=== PATIENT | male | born 1980 ===

== ENCOUNTER 2018-02-28 19:17 | Inpatient (IN) | payer MEDICAID, OTHER ==
[2018-02-28] MEDS ORDERED: Sodium Chloride 0.9% 1,000 ML IV ONE ×2 (19:39→20:56)
--- NOTE | 2018-02-28 19:43 | C.PDOC ---
History Of Present Illness 37 year old male presents to the ED c/o fever and occasional productive cough for the past 3-4 days. Patient states he is not feeling well. Patient denies nausea, vomit, rash, CP, SOB, weakness, numbness, recent travel, sick contacts. PMD: Dr. Banerjee Chief Complaint (Nursing): Medical Clearance History Per: Patient History/Exam Limitations: no limitations Onset/Duration Of Symptoms: Days (3-4) Current Symptoms Are (Timing): Still Present Reports Recently: Treated By A Physician (Dr. Banerjee) Recent travel outside of the [place]: No Additional History Per: Patient Past Medical History Reviewed: Historical Data, Nursing Documentation, Vital Signs Vital Signs: Last Vital Signs Temp 98.7 F 02/28/18 19:26 Pulse 89 02/28/18 19:26 Resp 18 02/28/18 19:26 BP 126/75 02/28/18 19:26 Pulse Ox 99 02/28/18 20:38 - Medical History PMH: No Chronic Diseases Surgical History: No Surg Hx Family History: States: Unknown Family Hx - Social History Hx Alcohol Use: Yes Hx Substance Use: No - Immunization History Hx Tetanus Toxoid Vaccination: No Hx Influenza Vaccination: No Hx Pneumococcal Vaccination: No Review Of Systems Constitutional: Positive for: Fever. Negative for: Chills Cardiovascular: Negative for: Chest Pain, Palpitations Respiratory: Positive for: Cough. Negative for: Shortness of Breath, Sputum Gastrointestinal: Negative for: Nausea, Vomiting Skin: Negative for: Rash Neurological: Negative for: Weakness, Numbness, Headache Physical Exam - Physical Exam Appears: Non-toxic, No Acute Distress Skin: Normal Color, Warm, Dry Head: Atraumatic, Normacephalic Eye(s): bilateral: Normal Inspection Ear(s): Bilateral: Normal Nose: No Discharge Oral Mucosa: Moist Throat: Normal, No Erythema, No Exudate Neck: Normal ROM, Supple Chest: Symmetrical Cardiovascular: Rhythm Regular, No Murmur Respiratory: No Decreased Breath Sounds, No Accessory Muscle Use, Rales (left lung field), No Rhonchi, No Wheezing, No Plerual Rub Gastrointestinal/Abdominal: Soft, No Tenderness, No Guarding, No Rebound Extremity: Normal ROM, No Tenderness, No Swelling Neurological/Psych: Oriented x3, Normal Speech Gait: Steady ED Course And Treatment - Laboratory Results Result Diagrams: 02/28/18 19:55 02/28/18 19:55 ECG: Interpreted By Me, Viewed By Me ECG Rhythm: Sinus Rhythm ECG Interpretation: Normal, No Acute Changes Interpretation Of ECG: NSR, normal tracings. Rate From EC O2 Sat by Pulse Oximetry: 99 (ON RA) Pulse Ox Interpretation: Normal Medical Decision Making Medical Decision Making: Plan: * EKG * Labs * CXR * IV fluids * Blood culture * Influenza A B test Disposition Discussed With Dr.: Matthew Schreiber Doctor Will See Patient In The: Hospital Counseled Patient/Family Regarding: Diagnosis - Disposition Referrals: Roosevelt Banerjee MD [Primary Care Provider] - Disposition: HOSPITALIZED Disposition Time: 22:13 Condition: STABLE Forms: [facility] (Thai) - POA Present On Arrival: None - Clinical Impression Clinical Impression: Lobar pneumonia - Scribe Statement The provider has reviewed the documentation as recorded by the Scribe Chacorta Grey All medical record entries made by the Scribe were at my direction and personally dictated by me. I have reviewed the chart and agree that the record accurately reflects my personal performance of the history, physical exam, medical decision making, and the department course for this patient. I have also personally directed, reviewed, and agree with the discharge instructions and disposition.
[2018-02-28 20:02] LABS: BASO % 0.4 % (0.0-2.0); EOS % 0.2 % (0.0-4.0); HEMOGLOBIN 12.4 g/dL (12.0-18.0); LYMPH # 0.8 K/uL (1.0-4.3); LYMPH % 12.7 % (20.0-40.0); MEAN CELL VOLUME 95.8 fL (80.0-94.0); MEAN CORPUSCULAR HEMOGLOBIN 33.7 pg (27.0-31.0); MEAN CORPUSCULAR HGB CONC 35.2 g/dL (33.0-37.0); MEAN PLATELET VOLUME 7.6 fL (7.2-11.7); MONO # 0.6 K/uL (0.0-0.8); MONO % 9.7 % (0.0-10.0); NEUT # 4.8 K/uL (1.8-7.0); RBC 3.66 Mil/uL (4.40-5.90); WHITE BLOOD COUNT 6.3 K/uL (4.8-10.8)
[2018-02-28 20:17] LABS: ALB/GLOB RATIO 1.1 (1.0-2.1); ALBUMIN 3.5 g/dL (3.5-5.0); ALT/SGPT 114 U/L (21-72); AST/SGOT 126 U/L (17-59); BLOOD UREA NITROGEN 5 mg/dL (9-20); GFR NON-AFRICAN AMERICAN > 60
[2018-02-28] MEDS ORDERED: Potassium Chloride 20 mEq/15 ml LIQ UD PO STA (20:20)
[2018-02-28 20:44] LABS: ABG ALLEN TEST POS; ARTERIAL BLOOD GAS HCO3 25.1 mmol/L (21-28); ARTERIAL BLOOD GAS HEMOGLOBIN 12.4 g/dL (11.7-17.4); ARTERIAL BLOOD GAS PCO2 29 mm/Hg (35-45); ARTERIAL BLOOD GAS PO2 83 mm/Hg (80-100); ARTERIAL BLOOD GAS TCO2 23.5 mmol/L (22-28)
[2018-02-28] MEDS ORDERED: cefTRIAXone IV 1 gm in Dextros 50 ML IVPB ONE (22:07)
[2018-02-28] MEDS ORDERED: Azithromycin 500mg/250ML NS 500 MG/250 ML BAG IV STA (22:08)
--- NOTE | 2018-02-28 22:24 | CP.PCM.HP ---
<Hao Mejias - Last Filed: 03/01/18 05:18> History of Present Illness - History of Present Illness History of Present Illness: PGY2 Medicine Note for Dr. Schreiber Patient is a 37 year old male with a past medical history of alcohol abuse and recent respiratory illness. Patient has been experiencing a worsening productive cough for the past 6 days. The cough is productive with dark, brown sputum. He took an unknown antibiotic for 3 days (believed to be azithro due to 5 day duration). He is not getting any better and decided to come to the hospital for further evaluation. He has no other complaints at this time. Denies fevers, chills, nausea, vomiting, diarrhea, constipation, runny nose, sore throat, chest pain, dyspnea, abdominal pain, weakness, headaches, numbness , tingling, sick contacts or recent travel. PMD: Dr. Roosevelt Banerjee PMH: Alcohol abuse PSH: denies Family: unknown Social: "chain" smoker >1 ppd, drinks 10-15 beers daily, denies illicit drug use. Lives with brother and niece (both at bedside). Allergies: NKDA Meds: none Present on Admission - Present on Admission Any Indicators Present on Admission: No Review of Systems - Review of Systems All systems: reviewed and no additional remarkable complaints except - Constitutional Constitutional: As Per HPI. absent: Chills, Fever - EENT Eyes: As Per HPI Nose/Mouth/Throat: As Per HPI - Cardiovascular Cardiovascular: As Per HPI - Respiratory Respiratory: As Per HPI, Cough, Excessive Mucous Production, Change in Mucous Color (brown). absent: Hemoptysis, Wheezing - Gastrointestinal Gastrointestinal: As Per HPI. absent: Abdominal Pain, Constipation, Diarrhea, Nausea, Vomiting - Genitourinary Genitourinary: As Per HPI. absent: Change in Urinary Stream, Difficulty Urinating, Urinary Frequency - Musculoskeletal Musculoskeletal: As Per HPI. absent: Neck Pain, Numbness, Tingling - Integumentary Integumentary: As Per HPI - Neurological Neurological: As Per HPI. absent: Numbness, Tingling, Weakness - Psychiatric Psychiatric: As Per HPI. absent: Depression - Endocrine Endocrine: As Per HPI - Hematologic/Lymphatic Hematologic: As Per HPI Past Patient History - Infectious Disease Hx of Infectious Diseases: None - Past Social History Smoking Status: Heavy Smoker > 10 Cigarettes Daily - PSYCHIATRIC Hx Substance Use: No - SURGICAL HISTORY Hx Surgeries: No - ANESTHESIA Hx Anesthesia: No Meds Allergies/Adverse Reactions: Allergies Allergy/AdvReac Type Severity Reaction Status Date / Time No Known Allergies Allergy Unverified 02/28/18 19:24 Physical Exam - Constitutional Appears: Non-toxic, No Acute Distress - Head Exam Head Exam: ATRAUMATIC, NORMOCEPHALIC - Eye Exam Eye Exam: EOMI, Normal appearance, PERRL Pupil Exam: NORMAL ACCOMODATION - ENT Exam ENT Exam: Mucous Membranes Moist, Normal Oropharynx - Neck Exam Neck exam: Negative for: Lymphadenopathy - Respiratory Exam Respiratory Exam: Decreased Breath Sounds (left base), Rales (left base), NORMAL BREATHING PATTERN. absent: Accessory Muscle Use, Chest Wall Tenderness, Prolonged Expiratory Phase, Rhonchi, Wheezes, Respiratory Distress, Stridor - Cardiovascular Exam Cardiovascular Exam: REGULAR RHYTHM, +S1 - GI/Abdominal Exam GI & Abdominal Exam: Normal Bowel Sounds, Soft. absent: Distended, Firm, Guarding, Rebound, Rigid, Tenderness - Extremities Exam Extremities exam: Positive for: normal inspection, pedal pulses present. Negative for: calf tenderness, pedal edema - Neurological Exam Neurological exam: Alert, Oriented x3 - Psychiatric Exam Psychiatric exam: Normal Affect, Normal Mood - Skin Skin Exam: Dry, Warm Results - Vital Signs Recent Vital Signs: Last Vital Signs Temp 98.7 F 02/28/18 19:26 Pulse 89 02/28/18 19:26 Resp 18 02/28/18 19:26 BP 126/75 02/28/18 19:26 Pulse Ox 99 02/28/18 22:14 - Labs Result Diagrams: 02/28/18 19:55 02/28/18 19:55 Labs: Laboratory Results - last 24 hr 02/28/18 02/28/18 02/28/18 19:31 19:55 19:55 WBC 6.3 RBC 3.66 L Hgb 12.4 Hct 35.1 MCV 95.8 H MCH 33.7 H MCHC 35.2 RDW 13.0 Plt Count 353 MPV 7.6 Neut % (Auto) 77.0 H Lymph % (Auto) 12.7 L [place] % (Auto) 9.7 Eos % (Auto) 0.2 Baso % (Auto) 0.4 Neut # (Auto) 4.8 Lymph # (Auto) 0.8 L [place] # (Auto) 0.6 Eos # (Auto) 0.0 Baso # (Auto) 0.0 D-Dimer, Quantitative Puncture Site pCO2 pO2 HCO3 ABG pH ABG Total CO2 ABG O2 Saturation ABG Base Excess ABG Hemoglobin ABG Carboxyhemoglobin POC ABG HHb (Measured) ABG Methemoglobin Mitchell Test A-a O2 Difference Respiratory Index Hgb O2 Saturation FiO2 Sodium Potassium Chloride Carbon Dioxide Anion Gap BUN Creatinine Est GFR ( Amer) Est GFR (Non-Af Amer) POC Glucose (mg/dL) 172 H Random Glucose Calcium Total Bilirubin AST ALT Alkaline Phosphatase Troponin I Total Protein Albumin Globulin Albumin/Globulin Ratio Influenza Typ A,B (EIA) Negative for flu a/b 02/28/18 02/28/18 02/28/18 19:55 19:55 20:40 WBC RBC Hgb Hct MCV MCH MCHC RDW Plt Count MPV Neut % (Auto) Lymph % (Auto) [place] % (Auto) Eos % (Auto) Baso % (Auto) Neut # (Auto) Lymph # (Auto) [place] # (Auto) Eos # (Auto) Baso # (Auto) D-Dimer, Quantitative 825 H Puncture Site Rba pCO2 29 L pO2 83 HCO3 25.1 ABG pH 7.50 H ABG Total CO2 23.5 ABG O2 Saturation 98.0 ABG Base Excess 0.3 ABG Hemoglobin 12.4 ABG Carboxyhemoglobin 1.4 POC ABG HHb (Measured) 1.9 ABG Methemoglobin 1.4 Mitchell Test Pos A-a O2 Difference 30.0 Respiratory Index 0.4 Hgb O2 Saturation 95.2 FiO2 21.0 Sodium 133 Potassium 2.8 L Chloride 99 Carbon Dioxide 26 Anion Gap 11 BUN 5 L Creatinine 0.6 L Est GFR ( Amer) > 60 Est GFR (Non-Af Amer) > 60 POC Glucose (mg/dL) Random Glucose 147 H Calcium 8.0 L Total Bilirubin 0.7 AST 126 H ALT 114 H Alkaline Phosphatase 216 H Troponin I < 0.0120 Total Protein 6.7 Albumin 3.5 Globulin 3.2 Albumin/Globulin Ratio 1.1 Influenza Typ A,B (EIA) Assessment & Plan - Assessment and Plan (Free Text) Plan: Left Lower Lobe Pneumonia failed outpatient treatment (believed to be azithromycin) CXR 02/28: no acute disease --> pending official read AM Chest CT w/o (prelim read) --> pending official read in AM * Left lower extensive lobar pneumonia No leukocytosis afebrile elevated D-Dimer 825 trop neg x1 rapid flu neg blood cultures pending Medications: * Moxifloxacin (Avelox) 400mg IVPB daily (started on 03/01) * Treated with Rocephin and Azithro in ED * Tessalon pearls 100mg PO q8h * Tylenol 650mg PO prn Alcohol Abuse CIWA protocol Seizure precautions prn Aspiration precautions prn Medications: * Ativan 1mg PO TID prn (Ativan used instead of Librium due to elevated LFTs) * Ativan 2mg IVP q6h prn * Banana Bag @ 100mL/hr Transaminitis likely 2/2 alcohol abuse continue to monitor Hypokalemia Repleted Continue to monitor and replete as needed Prophylactic Care VTE - Anticoag not indicated as patient ambulates SCDs Case discussed with Dr. Candie Bui Randell PGY2 <Matthew Schreiber - Last Filed: 03/01/18 06:33> Results - Vital Signs Recent Vital Signs: Last Vital Signs Temp 101.8 F H 03/01/18 05:44 Pulse 86 03/01/18 00:20 Resp 20 03/01/18 00:20 BP 120/77 03/01/18 00:20 Pulse Ox 99 03/01/18 00:20 - Labs Result Diagrams: 02/28/18 19:55 02/28/18 19:55 Labs: Laboratory Results - last 24 hr 02/28/18 02/28/18 02/28/18 19:31 19:55 19:55 WBC 6.3 RBC 3.66 L Hgb 12.4 Hct 35.1 MCV 95.8 H MCH 33.7 H MCHC 35.2 RDW 13.0 Plt Count 353 MPV 7.6 Neut % (Auto) 77.0 H Lymph % (Auto) 12.7 L [place] % (Auto) 9.7 Eos % (Auto) 0.2 Baso % (Auto) 0.4 Neut # (Auto) 4.8 Lymph # (Auto) 0.8 L [place] # (Auto) 0.6 Eos # (Auto) 0.0 Baso # (Auto) 0.0 D-Dimer, Quantitative Puncture Site pCO2 pO2 HCO3 ABG pH ABG Total CO2 ABG O2 Saturation ABG Base Excess ABG Hemoglobin ABG Carboxyhemoglobin POC ABG HHb (Measured) ABG Methemoglobin Mitchell Test A-a O2 Difference Respiratory Index Hgb O2 Saturation FiO2 Sodium Potassium Chloride Carbon Dioxide Anion Gap BUN Creatinine Est GFR ( Amer) Est GFR (Non-Af Amer) POC Glucose (mg/dL) 172 H Random Glucose Calcium Total Bilirubin AST ALT Alkaline Phosphatase Troponin I Total Protein Albumin Globulin Albumin/Globulin Ratio Influenza Typ A,B (EIA) Negative for flu a/b 02/28/18 02/28/18 02/28/18 19:55 19:55 20:40 WBC RBC Hgb Hct MCV MCH MCHC RDW Plt Count MPV Neut % (Auto) Lymph % (Auto) [place] % (Auto) Eos % (Auto) Baso % (Auto) Neut # (Auto) Lymph # (Auto) [place] # (Auto) Eos # (Auto) Baso # (Auto) D-Dimer, Quantitative 825 H Puncture Site Rba pCO2 29 L pO2 83 HCO3 25.1 ABG pH 7.50 H ABG Total CO2 23.5 ABG O2 Saturation 98.0 ABG Base Excess 0.3 ABG Hemoglobin 12.4 ABG Carboxyhemoglobin 1.4 POC ABG HHb (Measured) 1.9 ABG Methemoglobin 1.4 Mitchell Test Pos A-a O2 Difference 30.0 Respiratory Index 0.4 Hgb O2 Saturation 95.2 FiO2 21.0 Sodium 133 Potassium 2.8 L Chloride 99 Carbon Dioxide 26 Anion Gap 11 BUN 5 L Creatinine 0.6 L Est GFR ( Amer) > 60 Est GFR (Non-Af Amer) > 60 POC Glucose (mg/dL) Random Glucose 147 H Calcium 8.0 L Total Bilirubin 0.7 AST 126 H ALT 114 H Alkaline Phosphatase 216 H Troponin I < 0.0120 Total Protein 6.7 Albumin 3.5 Globulin 3.2 Albumin/Globulin Ratio 1.1 Influenza Typ A,B (EIA) Assessment & Plan - Date & Time Date: 03/01/18 (I have seen and examined the patient. I agree with the findins and plan of care as documented by Dr. Mejias. Patient with pneumonia. Failure of outpatient therapy. Medication unknown but likely Azithromycin. Continue Avelox. Sputum and blood cultures. Also with alcohol abuse. CIWA protocol. Monitor for acute changes.) Time: 06:32
[2018-02-28] MEDS ORDERED: Potassium Chloride 20 mEq ER Tab PO ONE (22:51)
[2018-02-28] MEDS ORDERED: cefTRIAXone 1 gm 1 GM/100 ML BAG IVPB ONE (22:52)
[2018-02-28] MEDS ORDERED: Azithromycin 500mg/250ML NS 500 MG/250 ML BAG IVPB ONE (22:52)
[2018-02-28 23:02] VITALS: RESP 20
[2018-03-01 06:30] LABS: BASO % 0.9 % (0.0-2.0); EOS % 0.3 % (0.0-4.0); HEMOGLOBIN 11.9 g/dL (12.0-18.0); LYMPH # 0.9 K/uL (1.0-4.3); LYMPH % 15.9 % (20.0-40.0); MEAN CELL VOLUME 95.8 fL (80.0-94.0); MEAN CORPUSCULAR HEMOGLOBIN 34.7 pg (27.0-31.0); MEAN CORPUSCULAR HGB CONC 36.3 g/dL (33.0-37.0); MEAN PLATELET VOLUME 8.1 fL (7.2-11.7); MONO # 0.6 K/uL (0.0-0.8); MONO % 10.3 % (0.0-10.0); NEUT % 72.6 % (50.0-75.0); NRBC % 0.1 % (0.0-2.0); RBC 3.44 Mil/uL (4.40-5.90); RED CELL DISTRIBUTION WIDTH 12.9 % (11.5-14.5); WHITE BLOOD COUNT 5.5 K/uL (4.8-10.8)
[2018-03-01 06:52] LABS: ALT/SGPT 100 U/L (21-72); AST/SGOT 122 U/L (17-59); BLOOD UREA NITROGEN 4 mg/dL (9-20); CALCIUM 7.5 mg/dl (8.6-10.4); GFR NON-AFRICAN AMERICAN > 60
--- NOTE | 2018-03-01 07:43 | CP.PCM.PN ---
Subjective - Date & Time of Evaluation Date of Evaluation: 03/01/18 Time of Evaluation: 07:37 - Subjective Subjective: Silvano Martin PGY1 Medicine Progress Note Patient was seen at bedside this morning. Patient is without complaints. Patient states he is in no pain, but he complains of some mild productive cough. Patient denies tremors, anxiety, diaphoresis, chest pain, shortness of breath, and/or fever/chills. Objective - Vital Signs/Intake and Output Vital Signs (last 24 hours): Temp Pulse Resp BP Pulse Ox 100.6 F H 74 20 120/77 99 03/01/18 06:45 03/01/18 05:30 03/01/18 05:30 03/01/18 00:20 03/01/18 00:20 Intake and Output: 03/01/18 03/01/18 06:59 18:59 Intake Total 1050 Balance 1050 - Medications Medications: Current Medications Acetaminophen (Tylenol 325mg Tab) 650 mg PO Q6 PRN PRN Reason: Fever >100.4 F or headache Last Admin: 03/01/18 05:44 Dose: 650 mg Benzonatate (Tessalon Perles) 100 mg PO Q8H MELIZA Last Admin: 03/01/18 04:20 Dose: 100 mg Moxifloxacin HCl (Avelox Iv 400mg/250ml Ns) 400 mg in 250 mls @ 167 mls/hr IVPB DAILY MELIZA PRN Reason: Protocol Multivitamins/Vitamin C 10 ml/Thiamine HCl 100 mg/ Folic Acid 1 mg/ Sodium Chloride 1,011.2 mls @ 100 mls/hr IV .[id number] ONE Stop: 03/01/18 20:06 Lorazepam (Ativan) 2 mg IVP Q6H PRN PRN Reason: Symptoms of alcohol withdrawl Lorazepam (Ativan) 1 mg PO TID PRN PRN Reason: Symptoms of alcohol withdrawl Pantoprazole Sodium (Protonix Ec Tab) 40 mg PO DAILY [facility] Pneumococcal Polyvalent Vaccine (Pneumovax 23 Vaccine) 0.5 ml IM .ONCE ONE Stop: 03/02/18 10:01 - Labs Labs: 03/01/18 06:22 03/01/18 06:22 - Additional Findings Additional findings: - Constitutional Appears: Non-toxic, No Acute Distress - Head Exam Head Exam: ATRAUMATIC, NORMOCEPHALIC - Eye Exam Eye Exam: EOMI, Normal appearance, PERRL Pupil Exam: NORMAL ACCOMODATION - ENT Exam ENT Exam: Mucous Membranes Moist, Normal Oropharynx - Neck Exam Neck exam: Negative for: Lymphadenopathy - Respiratory Exam Respiratory Exam: Decreased Breath Sounds (left base), Rales (left base), NORMAL BREATHING PATTERN. absent: Accessory Muscle Use, Chest Wall Tenderness, Prolonged Expiratory Phase, Rhonchi, Wheezes, Respiratory Distress, Stridor - Cardiovascular Exam Cardiovascular Exam: REGULAR RHYTHM, +S1 - GI/Abdominal Exam GI & Abdominal Exam: Normal Bowel Sounds, Soft. absent: Distended, Firm, Guarding, Rebound, Rigid, Tenderness - Extremities Exam Extremities exam: Positive for: normal inspection, pedal pulses present. Negative for: calf tenderness, pedal edema - Neurological Exam Neurological exam: Alert, Oriented x3 - Psychiatric Exam Psychiatric exam: Normal Affect, Normal Mood - Skin Skin Exam: Dry, Warm Assessment and Plan - Assessment and Plan (Free Text) Assessment: Patient is a 37 year old male with a past medical history of alcohol abuse and recent respiratory illness who is admitted to [facility] for failed outpatient treatment of left lower lobe pneumonia Left Lower Lobe Pneumonia, rule out Sepsis (SIRS criteria not met) - Failed outpatient treatment (believed to be azithromycin) - CXR 02/28: left lower lobe pneumonia. - Chest CT: Left lower lobe airspace disease - Absent leukocytosis likely due to chronic alcohol consumption - Tmax today 102F, currently afebrile - Elevated D-Dimer= 825 - troponins negx1 - rapid flu: neg - blood cultures: pending - Moxifloxacin (Avelox) 400mg IVPB daily (started on 03/01) * Treated with Rocephin and Azithro in ED - Tessalon pearls 100mg PO q8h - Tylenol 650mg PO prn Alcohol Abuse - WA protocol - Seizure precautions prn - Aspiration precautions prn - MCV=95.8 - Continue Ativan 1mg PO TID prn (Ativan used instead of Librium due to elevated LFTs) - Continue Ativan 2mg IVP q6h prn - Discontinue Banana Bag @ 100mL/hr - Start on Vitamin B complex / Vitamin C complex PO Daily Transaminitis likely secondary to alcohol abuse - TGG=840 (down from 126), KWF=429 (down from 114) - continue to monitor Hypokalemia, improved - K+=3.5 (up from 2.8) - Continue to monitor and replete as needed Prophylactic Care - VTE - Anticoag not indicated as patient ambulates - SCDs Patient seen and evaluated with and case discussed in detail with Attending Physician, Dr. Kali Martin PGY1
--- NOTE | 2018-03-01 08:34 | RAD ---
HISTORY: COMPARISON: No prior. TECHNIQUE: Chest PA and lateral FINDINGS: LINES AND TUBES: None. LUNG AND PLEURA: The lungs are well inflated. There is ill-defined airspace disease in the left lower lobe. No pleural effusion or pneumothorax. HEART AND MEDIASTINUM: The heart is not enlarged. The hilar and mediastinal contours are within normal limits. SKELETAL STRUCTURES: The bony structures are within normal limits for the patient's age. VISUALIZED UPPER ABDOMEN: Normal. OTHER FINDINGS: None. IMPRESSION: Left lower lobe pneumonia.Follow-up after medical management is recommended to ensure complete resolution.
[2018-03-01] MEDS ORDERED: Multivitamin (MVI) 10 ML, Thiamine 100 MG, Folic Acid 1 MG in Sodium Chloride 0.9% 1,00... IV ONE (10:00)
[2018-03-01] MEDS: Pantoprazole 40 mg EC Tab PO SCH (10:06)
[2018-03-01] MEDS: Moxifloxacin IV 400mg/250ml NS 400 MG/250 ML BAG IVPB SCH (10:07)
--- NOTE | 2018-03-01 10:41 | CT ---
Date of service: 02/28/2018 PROCEDURE: CT Chest without contrast HISTORY: chest confestion/ rales COMPARISON: None available. TECHNIQUE: Contiguous axial images were obtained through the chest without intravenous contrast enhancement. Sagittal and coronal reconstructions were performed. Radiation dose (DLP): 202.5 mGy-cm. This CT exam was performed using one or more of the following dose reduction techniques: Automated exposure control, adjustment of the mA and/or kV according to patient size, and/or use of iterative reconstruction technique. FINDINGS: LUNGS: Extensive left lower lobe airspace disease. Visualized airway clear. MEDIASTINUM: Unremarkable thoracic aorta. No aneurysm. Normal sized heart. Main pulmonary artery unremarkable. No vascular congestion. No lymphadenopathy. PLEURA: No pleural fluid. No pneumothorax. BONES: No fracture. No destructive lesion. UPPER ABDOMEN: Grossly unremarkable. OTHER FINDINGS: None. IMPRESSION: Left lower lobe airspace disease.
[2018-03-01] MEDS ORDERED: Potassium Chloride 20 mEq ER Tab PO ONE ×2 (19:30→21:45)
--- NOTE | 2018-03-02 00:01 | CARD ---
APPROVED REPORT Date of service: 02/28/2018 EKG Measurement Heart [id number] <Conclusion> Normal sinus rhythm Normal ECG
--- NOTE | 2018-03-02 06:27 | CP.PCM.PN ---
<Silvano Martin - Last Filed: 03/02/18 16:13> Subjective - Date & Time of Evaluation Date of Evaluation: 03/02/18 Time of Evaluation: 06:25 - Subjective Subjective: Silvano Martin PGY1 Medicine Progress Note for Dr. Terrell Patient was seen at bedside this morning. Patient is without complaints. Patient states he is in no pain, but he complains of productive cough with phlegm. Patient denies tremors, anxiety, diaphoresis, chest pain, shortness of breath, and/or fever/chills. Objective - Vital Signs/Intake and Output Vital Signs (last 24 hours): Temp Pulse Resp BP Pulse Ox 99.1 F 93 H 20 122/78 95 03/02/18 00:00 03/02/18 00:00 03/02/18 00:00 03/02/18 00:00 03/02/18 00:00 Intake and Output: 03/01/18 03/02/18 18:59 06:59 Intake Total 1580 Balance 1580 - Medications Medications: Current Medications Acetaminophen (Tylenol 325mg Tab) 650 mg PO Q6 PRN PRN Reason: Fever >100.4 F or headache Last Admin: 03/01/18 05:44 Dose: 650 mg Benzonatate (Tessalon Perles) 100 mg PO Q8H [facility] Last Admin: 03/02/18 03:44 Dose: 100 mg Moxifloxacin HCl (Avelox Iv 400mg/250ml Ns) 400 mg in 250 mls @ 167 mls/hr IVPB DAILY MELIZA PRN Reason: Protocol Last Admin: 03/01/18 10:07 Dose: 167 mls/hr Lorazepam (Ativan) 2 mg IVP Q6H PRN PRN Reason: Symptoms of alcohol withdrawl Lorazepam (Ativan) 1 mg PO TID PRN PRN Reason: Symptoms of alcohol withdrawl Last Admin: 03/01/18 17:50 Dose: 1 mg Pantoprazole Sodium (Protonix Ec Tab) 40 mg PO DAILY [facility] Last Admin: 03/01/18 10:06 Dose: 40 mg Pneumococcal Polyvalent Vaccine (Pneumovax 23 Vaccine) 0.5 ml IM .ONCE ONE Stop: 03/02/18 10:01 Vitamin B Complex/Vit C/Folic Acid (Nephro-Camacho) 1 tab PO 0800 [facility] - Labs Labs: 03/01/18 06:22 03/01/18 06:22 - Additional Findings Additional findings: - Additional Findings Additional findings: - Constitutional Appears: Non-toxic, No Acute Distress - Head Exam Head Exam: ATRAUMATIC, NORMOCEPHALIC - Eye Exam Eye Exam: EOMI, Normal appearance, PERRL Pupil Exam: NORMAL ACCOMODATION - ENT Exam ENT Exam: Mucous Membranes Moist, Normal Oropharynx - Neck Exam Neck exam: Negative for: Lymphadenopathy - Respiratory Exam Respiratory Exam: Decreased Breath Sounds (left base), Rales (left base), NORMAL BREATHING PATTERN. absent: Accessory Muscle Use, Chest Wall Tenderness, Prolonged Expiratory Phase, Rhonchi, Wheezes, Respiratory Distress, Stridor - Cardiovascular Exam Cardiovascular Exam: REGULAR RHYTHM at 93 beats per minute, tachycardia, +S1 - GI/Abdominal Exam GI & Abdominal Exam: Normal Bowel Sounds, Soft. absent: Distended, Firm, Guarding, Rebound, Rigid, Tenderness - Extremities Exam Extremities exam: Positive for: normal inspection, pedal pulses present. Negative for: calf tenderness, pedal edema - Neurological Exam Neurological exam: Alert, Oriented x3 - Psychiatric Exam Psychiatric exam: Normal Affect, Normal Mood - Skin Skin Exam: Dry, Warm Assessment and Plan - Assessment and Plan (Free Text) Assessment: Assessment: Patient is a 37 year old male with a past medical history of alcohol abuse and recent respiratory illness who is admitted to [facility] for failed outpatient treatment of left lower lobe pneumonia Left Lower Lobe Pneumonia, rule out Sepsis (SIRS criteria not met) - Failed outpatient treatment (believed to be azithromycin) - CXR 02/28: left lower lobe pneumonia. - Chest CT: Left lower lobe airspace disease - CT Angiogram: unremarkable for PE. Left loewr lobe airspace disease trace parapneum effusion. - Absent leukocytosis likely due to chronic alcohol consumption - Tmax in last 24 hours =100. Currently afebrile. - Elevated D-Dimer= 825, Bilateral lower extremity venous duplex: unremarkable. - Trop: neg x1 - Rapid flu: neg - Hep panel: neg - HIV Ab: neg - Blood cultures: pending - Held Moxifloxacin (Avelox) 400mg IVPB daily (started on 03/01) due to increased LFT's. Will Resume and/or change ABX tomorrow. * Was treated with Rocephin and Azithro in ED - Tessalon pearls 100mg PO q8h - Florestor 250mg PO BID Alcohol Abuse - CIWA protocol - Seizure precautions prn - Aspiration precautions prn - MCV=96.8 - Ativan 1mg IVP Q6H PRN (Ativan used instead of Librium due to elevated LFTs) - Stopped Banana Bag @ 100mL/hr - Start Thiamine 100mg PO Daily, Vitamin B complex / Vitamin C complex PO Daily - Psych consulted: recommendations appreciated - Steve consulted: recommendations appreciated Transaminitis - RLG=472 (increased from 122) CAN=932 (increased from 100) - Stopped Tylenol - Abdominal ultrasound obtained: hepatic steatosis; otherwise unremarkable - continue to monitor Hypokalemia, improved - K+= 3.9 (up from 3.5) - Continue to monitor and replete as needed Prophylactic Care - VTE - Anticoag not indicated as patient ambulates - SCDs Patient seen and evaluated with and case discussed in detail with Attending Physician, Dr. Nidhi Martin PGY1 <Laura Terrell V - Last Filed: 03/02/18 22:10> Objective - Vital Signs/Intake and Output Vital Signs (last 24 hours): Temp Pulse Resp BP Pulse Ox 98.2 F 79 20 110/71 96 03/02/18 15:00 03/02/18 15:00 03/02/18 15:00 03/02/18 15:00 03/02/18 15:00 Intake and Output: 03/02/18 03/03/18 18:59 06:59 Intake Total 1510 Balance 1510 - Medications Medications: Current Medications Benzonatate (Tessalon Perles) 100 mg PO Q8H MELIZA Last Admin: 03/02/18 20:00 Dose: 100 mg Folic Acid (Folic Acid) 1 mg PO DAILY MELIZA Moxifloxacin HCl (Avelox Iv 400mg/250ml Ns) 400 mg in 250 mls @ 167 mls/hr IVPB DAILY MELIZA PRN Reason: Protocol Last Admin: 03/02/18 10:37 Dose: 167 mls/hr Lorazepam (Ativan) 1 mg IVP Q6H PRN PRN Reason: Seizure activity Multivitamins (Hexavitamin) 1 tab PO DAILY MELIZA Nicotine (Nicoderm Cq) 1 patch TD DAILY MELIZA Pantoprazole Sodium (Protonix Ec Tab) 40 mg PO DAILY [facility] Last Admin: 03/02/18 10:36 Dose: 40 mg Saccharomyces Boquindii (Florastor) 250 mg PO BID [facility] Last Admin: 03/02/18 17:46 Dose: 250 mg Thiamine HCl (Vitamin B1 Tab) 100 mg PO DAILY [facility] - Labs Labs: 03/02/18 06:35 03/02/18 06:35 Attending/Attestation - Attestation I have personally seen and examined this patient.: Yes I have fully participated in the care of the patient.: Yes I have reviewed all pertinent clinical information, including history, physical exam and plan: Yes Notes (Text): Patient seen, examined and case discussed with day-time resident. Patient admitted for pneumonia; which failed to improve with outpatient antibiotic. Patient noted to have transaminitis; ordered for hepatitis panel, and abdominal US to eval liver in light of alcohol use. Patient reports consistent alcohol use, stemming from time when his dad about 7 years ago. Concern for possible depression, I have ordered for both psychiatry and pastoral care to come and evaluate him. Patient is on Avelox to cover for community acquired pneumonia. Patient cannot be ruled out for PE based on PERC criteria in light of elevated d -dimer, ordered for CT angio to rule out pe and venous dopplers r/o DVT. Patient seen in the afternoon, eagerly eating his burrito in no acute distress seen with brother and friend at bedside. Assessment/Plan 1) Left Lower Lobe Pneumonia Assessment/Plan * Failed outpatient treatment (believed to be azithromycin) * PSI: 35 points-->Risk Class I; 0.1% mortality-->outpatient treatment reasonable * CXR 02/28: left lower lobe pneumonia. * Chest CT: Left lower lobe airspace disease * CT Angiogram: unremarkable for PE. Left loewr lobe airspace disease trace parapneum effusion. * Tmax: 101.8F (03/01/18) * Avelox 400mg IVPB daily (started on 03/01/18) due to increased LFT's * Was treated with Rocephin and Azithro in ED on admission * Check Legionella, Mycoplasma IgM, and Strep Pneumoniae urine antigen * Rapid flu: neg - Hep panel: neg - HIV Ab: neg - Blood cultures: pending - Held Moxifloxacin (Avelox) 400mg IVPB daily (started on 03/01) due to increased LFT's. Will Resume and/or change ABX tomorrow. * Was treated with Rocephin and Azithro in ED - Tessalon pearls 100mg PO q8h - Florestor 250mg PO BID 2) Elevated D-Dimer Assessment/Plan * Venous dopplers negative for DVT * CT Angiogram: unremarkable for PE. Left loewr lobe airspace disease trace parapneum effusion. 3) Alcohol Abuse Assessment/Plan * [facility] protocol * Seizure precautions prn * Aspiration precautions prn * Ativan 1mg IVP Q6H PRN seizure activity only * Start Thiamine 100mg PO daily * Start Folic acid 1mg PO daily * Start Multivitamin 1 tab PO daily * Psych consulted: recommendations appreciated * Pastoral care consulted: recommendations appreciated 4) Transaminitis Assessment/Plan * BTY=827 (increased from 122) JHX=829 (increased from 100) * Stopped Tylenol * Abdominal ultrasound obtained: hepatic steatosis; otherwise unremarkable * continue to monitor 5) Hypokalemia Assessment/Plan * Normalized 6) Tobacco cessation Assessment/Plan * Discussed cessation of tobacco use including but not limited to cancer risk * Nicoderm patch daily 7) Prophylactic Care * VTE - Anticoag not indicated as patient ambulates * SCDs * protonix 40mg PO daily for GI ppx * Florastor 250mg PO BID Disposition: patient is likely for discharge tomorrow; monitor liver function test.
[2018-03-02 06:48] LABS: BASO % 0.6 % (0.0-2.0); EOS # 0.1 K/uL (0.0-0.7); EOS % 1.5 % (0.0-4.0); HEMOGLOBIN 13.2 g/dL (12.0-18.0); LYMPH # 1.2 K/uL (1.0-4.3); LYMPH % 21.4 % (20.0-40.0); MEAN CELL VOLUME 96.8 fL (80.0-94.0); MEAN CORPUSCULAR HEMOGLOBIN 34.2 pg (27.0-31.0); MEAN CORPUSCULAR HGB CONC 35.4 g/dL (33.0-37.0); MEAN PLATELET VOLUME 7.8 fL (7.2-11.7); MONO # 0.6 K/uL (0.0-0.8); NEUT # 3.5 K/uL (1.8-7.0); NEUT % 65.5 % (50.0-75.0); NRBC % 0.1 % (0.0-2.0); RBC 3.87 Mil/uL (4.40-5.90); RED CELL DISTRIBUTION WIDTH 13.2 % (11.5-14.5); WHITE BLOOD COUNT 5.4 K/uL (4.8-10.8)
[2018-03-02 07:35] LABS: ALBUMIN 3.3 g/dL (3.5-5.0); ALT/SGPT 116 U/L (21-72); AST/SGOT 126 U/L (17-59); BLOOD UREA NITROGEN 5 mg/dL (9-20); CALCIUM 8.6 mg/dl (8.6-10.4); GFR NON-AFRICAN AMERICAN > 60
[2018-03-02] MEDS ORDERED: Multivitamin Vitamin B Complex (Nephro-Vite) Tab PO SCH (08:00)
[2018-03-02] MEDS ORDERED: Sodium Chloride 0.9% 1,000 ML IV ONE (09:27)
[2018-03-02] MEDS ORDERED: Pneumococcal 23-Valent Vaccine IM ONE (10:00)
[2018-03-02] MEDS: Pantoprazole 40 mg EC Tab PO SCH (10:36)
[2018-03-02] MEDS: Moxifloxacin IV 400mg/250ml NS 400 MG/250 ML BAG IVPB SCH (10:37)
[2018-03-02] MEDS ORDERED: Iodixanol 320 MG/ML 100 ML BOTTLE IV ONE (12:22)
--- NOTE | 2018-03-02 13:16 | VASCLAB ---
Date of service: 03/02/2018 PROCEDURE: Left Lower Extremity Venous Duplex Exam. HISTORY: Elevated d dimer, rule out DVT PRIORS: None. TECHNIQUE: Left common femoral, femoral, popliteal and posterior tibial, peroneal and great saphenous veins were evaluated. Flow was assessed with color Doppler, compressibility, assessment of phasic flow and augmentation response. Report prepared by CHAY Hinojosa FINDINGS: LEFT: 1. Common Femoral Vein: 1.1. Compressibility - Fully compressible: Thrombus - None : Flow - Phasic: Augmentation -Normal: Reflux - None. 2. Femoral Vein: 2.1. Compressibility - Fully compressible: Thrombus - None: Flow - Phasic: Augmentation -Normal: Reflux - None. 3. Popliteal Vein: 3.1. Compressibility - Fully compressible: Thrombus - None: Flow - Phasic: Augmentation -Normal: Reflux - None. 4. Posterior Tibial Vein: 4.1. Compressibility - Fully compressible: Thrombus - None: Flow - Phasic: Augmentation -Normal: Reflux - None. 5. Peroneal Vein: 5.1. Compressibility - Fully compressible: Thrombus - None: Flow - Phasic: Augmentation -Normal: Reflux - None. 6. Great Saphenous Vein: 6.1. Compressibility - Fully compressible: Thrombus - None: Flow - Phasic: Augmentation - Normal: Reflux - None. OTHER FINDINGS: IMPRESSION: No evidence of deep or superficial vein thrombosis of the left lower extremity with excellent venous flow. Normal valve function noted of the left side. Normal venous flow noted in the right common femoral vein.
--- NOTE | 2018-03-02 13:28 | CT ---
Date of service: 03/02/2018 PROCEDURE: CT Chest with contrast (Pulmonary Angiogram) HISTORY: elevated d dimer, rule out PE COMPARISON: Correlations made to CT scan of the chest dated 02/28/2018. TECHNIQUE: Axial computed tomography images were obtained of the chest in the pulmonary arterial phase of enhancement. Coronal and sagittal reformatted images were created and reviewed. Intravenous contrast dose: 100 mL Visipaque 320 Radiation dose: Total exam DLP = 276.5 mGy-cm. This CT exam was performed using one or more of the following dose reduction techniques: Automated exposure control, adjustment of the mA and/or kV according to patient size, and/or use of iterative reconstruction technique. FINDINGS: PULMONARY ARTERIES: Unremarkable. No pulmonary embolism. AORTA: No acute findings. No thoracic aortic aneurysm. LUNGS: Extensive left lower lobe airspace disease. Visualized airways clear. PLEURAL SPACES: Trace parapneumonic effusion. No pneumothorax. HEART: Unremarkable. No cardiomegaly. No significant pericardial effusion. LYMPH NODES: No lymphadenopathy. BONES, CHEST WALL: Unremarkable. No fracture or destructive lesion OTHER FINDINGS: Unremarkable. IMPRESSION: Unremarkable CT pulmonary angiogram. No pulmonary embolus. Left lower lobe airspace disease. Trace parapneumonic effusion.
[2018-03-02 15:18] LABS: HEPATITIS B SURFACE AG Negative (NEGATIVE)
[2018-03-02 15:23] LABS: HEPATITIS A IGM NEGATIVE (NEGATIVE); HEPATITIS B CORE AB NEGATIVE (NEGATIVE)
[2018-03-02 15:35] LABS: HEPATITIS C ANTIBODY NEGATIVE (NEGATIVE)
--- NOTE | 2018-03-02 16:02 | US ---
Date of service: 03/02/2018 HISTORY: transaminitis, alcohol use COMPARISON: None. TECHNIQUE: Sonographic evaluation of the abdomen. FINDINGS: LIVER: Measures 14.7 cm. Increased echogenicity of the liver parenchyma. No mass. No intrahepatic bile duct dilatation. GALLBLADDER: Unremarkable. No gallstones. COMMON BILE DUCT: Measures 5 mm. No stones. No dilatation. PANCREAS: Unremarkable as visualized. No mass. No ductal dilatation. RIGHT KIDNEY: Measures 11.1 x 4.4 x 5.9cm. Normal echogenicity. No calculus, mass, or hydronephrosis. LEFT KIDNEY: Measures 10.6 x 5.8 x 5.6cm. Normal echogenicity. No calculus, mass, or hydronephrosis. SPLEEN: Normal in size and contour. No mass. AORTA: No aneurysmal dilatation. IVC: Unremarkable. OTHER FINDINGS: None. IMPRESSION: Hepatic steatosis. Otherwise, unremarkable abdominal ultrasound.
--- NOTE | 2018-03-02 17:30 | PCM.PSYCH ---
Initial Psychiatric Evaluation - Initial Psychiatric Evaluation Type of Admission: Voluntary Legal Status: Capacity History of Present Illness and Precipitating Events: PGY-1 Initial Psychiatric Evaluation note for Dr. Magallon. Patient is a 37 year old male is history of alcohol use disorder who is single, has 4 children who live in [place] (ages 14, 11, 10, 8), works at a restaurant, and lives with his brother and niece. Patient presented to ED with cough and fever and admitted for failed outpatient treatment of left lower lobe pneumonia. Psych consult was requested for alcohol use and possible depression. Patient drinks 10 12oz. beers daily. His last drink was 11 days ago. States he has a history of the shakes when he stops drinking, but he did not experience shakes with this episode. Denies history of seizures. He began drinking at 17 years old "because it was fun." He has never been through a detox program or rehabilitation. Patient also reports a 15 year history of tobacco use. He smokes 1ppd. He states he would like to quit smoking and drinking. Denies heroin, cocaine, marijuana, PCP and other ilicit drug use. Denies nausea, vomiting, abdominal pain, anxiety, agitation, diaphoresis, tremulousness, seizures, auditory and visual hallucinations. When asked about depression and his father's 6 years ago, he adamantly denies feelings of depressed mood, anhedonia, hopelessness, guilt. Also denies difficulty sleeping , change in appetite, loss of energy, difficulty concentrating, suicidal ideation, homicidal ideation, and manic symptoms. Psych hx: alcohol use disorder Psych hospitalizations: none Psychiatrist: none Family Psych Hx: none PMHx: none Meds: none Allergies: NKDA Current Medications: Active Medications Generic Name Dose Route Start Last Admin Trade Name Freq PRN Reason Stop Dose Admin Benzonatate 100 mg 03/01/18 04:00 03/02/18 13:00 Tessalon Perles PO 100 mg Q8H MELIZA Administration Moxifloxacin HCl 400 mg in 250 mls @ 167 mls/hr 03/01/18 10:00 03/02/18 10:37 Avelox Iv 400mg/250ml Ns IVPB 167 mls/hr DAILY MELIZA Administration Protocol Lorazepam 1 mg 03/02/18 10:54 Ativan IVP Q6H PRN Seizure activity Pantoprazole Sodium 40 mg 03/01/18 10:00 03/02/18 10:36 Protonix Ec Tab PO 40 mg DAILY MELIZA Administration Saccharomyces Boulardii 250 mg 03/02/18 18:00 Florastor PO BID MELIZA Thiamine HCl 100 mg 03/03/18 10:00 Vitamin B1 Tab PO DAILY MELIZA Vitamin B Complex/Vit C/Folic Acid 1 tab 03/02/18 08:00 03/02/18 08:17 Nephro-Camacho PO 1 tab 0800 MELIZA Administration Past Psychiatric History - Past Psychiatric History Previous Treatment History: None Pertinent Medical Hx (Current Medical&Sleep Prob, Allergies): Allergies Allergy/AdvReac Type Severity Reaction Status Date / Time No Known Allergies Allergy Unverified 02/28/18 19:24 No Known Home Med 02/28/18 Review of Systems - Psychiatric Psychiatric: Other (alcohol use ). absent: Abnormal Sleep Pattern, Anhedonia, Anxiety, Auditory Hallucinations, Behavioral Changes, Change in Appetite, Confusion, Depression, Difficulty Concentrating, Hallucinations, Homicidal Ideation, Hopelessness, Irritability, Memory Loss, Mood Swings, Panic Attacks, Paranoia, Suicidal Ideation, Visual Hallucinations Mental Status Examination - Personal Presentation Personal Presentation: Looks stated age - Affect Affect: Other (appropriate) - Motor Activity Motor Activity: Calm - Reliability in Providing Information Reliability in Providing Information: Good - Speech Speech: Organized, Relevant, Coherent - Mood Mood: Other (appropriate) - Formal Thought Process Formal Thought Process: No Impairment - Obsessions/Compulsions Obsessions: No Compulsions: No - Cognitive Functions Orientation: Person, Place, Situation, Time Sensorium: Alert Attention/Concentration: Attentive Judgement: Imparied, as evidence by: Poor judgement Memory: Recent intact, as evidence by: Ability to recall events of the day - Strength & Assets Inventory Strength & Assets Inventory: Family support, Employment history DSM 5 DX - DSM 5 DSM 5 Diagnosis: Alcohol use disorder severe - Recommended/Plan of Treatment Treatment Recommendations and Plan of Treatment: Alcohol use disorder severe Patient presently with no withdrawal symptoms Social work referral for after care planning Psycho-education provided Nicotine use disorder/withdrawal Nicotine patch
[2018-03-02] MEDS: Saccharomyces Boulardi 250 mg Cap PO SCH (17:46)
[2018-03-03 07:21] LABS: ALBUMIN 3.4 g/dL (3.5-5.0); ALT/SGPT 129 U/L (21-72); AST/SGOT 123 U/L (17-59); BLOOD UREA NITROGEN 5 mg/dL (9-20); CALCIUM 8.8 mg/dl (8.6-10.4); GFR NON-AFRICAN AMERICAN > 60
[2018-03-03 07:36] LABS: BASO % 0.7 % (0.0-2.0); EOS # 0.1 K/uL (0.0-0.7); EOS % 2.7 % (0.0-4.0); HEMOGLOBIN 13.6 g/dL (12.0-18.0); LYMPH # 1.3 K/uL (1.0-4.3); LYMPH % 26.3 % (20.0-40.0); MEAN CELL VOLUME 97.9 fL (80.0-94.0); MEAN CORPUSCULAR HEMOGLOBIN 34.5 pg (27.0-31.0); MEAN CORPUSCULAR HGB CONC 35.3 g/dL (33.0-37.0); MEAN PLATELET VOLUME 7.7 fL (7.2-11.7); MONO # 0.4 K/uL (0.0-0.8); NEUT # 3.2 K/uL (1.8-7.0); NEUT % 63.3 % (50.0-75.0); NRBC % 0.1 % (0.0-2.0); RBC 3.93 Mil/uL (4.40-5.90); RED CELL DISTRIBUTION WIDTH 13.1 % (11.5-14.5); WHITE BLOOD COUNT 5.1 K/uL (4.8-10.8)
[2018-03-03 08:05] VITALS: PULSE 70
[2018-03-03] MEDS: Saccharomyces Boulardi 250 mg Cap PO SCH ×2 (09:29→17:29)
[2018-03-03] MEDS: Pantoprazole 40 mg EC Tab PO SCH (09:29)
[2018-03-03] MEDS: Moxifloxacin IV 400mg/250ml NS 400 MG/250 ML BAG IVPB SCH (09:49)
[2018-03-03] MEDS ORDERED: Multiple Vitamins Tab PO SCH (10:00)
[2018-03-03 16:24] VITALS: BP 110/73; TEMP 98.8; O2SAT 97
== END 2018-03-03 19:00 | disposition home or self-care (01) | DRG 195 ==
LOC: SUPCPDRO 19:17 → C.ER 19:17 → C.9E 22:14 → C.3T 23:19
PROVIDERS: ADMIT Hospitalist; ATTEND Hospitalist
DX: J18.9 Pneumonia, unspecified organism (principal); E87.6 Hypokalemia; F17.210 Nicotine dependence, cigarettes, uncomplicated; F10.10 Alcohol abuse, uncomplicated; K76.0 Fatty (change of) liver, not elsewhere classified; R79.1 Abnormal coagulation profile